=== PATIENT | male | born 1980 | race Caucasian/White ===

== ENCOUNTER 2018-08-27 12:07 | Emergency (ER) | payer OTHER ==
[~2018-08-27] VITALS: Wt 117.4 kg
[~2018-08-27 12:07] MED LIST: AMLO5TAB4 PO; FENO48TA4 PO; HYDR25TA6 PO; METF100010 PO; OMEP20CA16 PO; OMEP40CA6 PO
[2018-08-27] MEDS ORDERED: ONDANSETRON 4 MG INJ IV STA ×3 (13:20→19:45)
[2018-08-27] MEDS ORDERED: PANTOPRAZOLE IV 80 MG in SOD CHLORIDE 0.9% 100 ML IVPB STA (13:20)
[2018-08-27] MEDS ORDERED: HYDROmorphONE 1 MG/ML SYG IV STA ×3 (13:20→19:45)
[2018-08-27] MEDS ORDERED: SOD CHLORIDE 0.9% 1,000 ML IV STA (13:20)
[2018-08-27] MEDS ORDERED: PANTOPRAZOLE IV 80 MG in SOD CHLORIDE 0.9% 100 ML IV STA (13:20)
--- NOTE | 2018-08-27 13:23 | ERD ---
ER Documentation Chief Complaint Chief Complaint vomited blood in AM: 'bright red'; hx gastric ulcers. for endoscopy in november This is a 38-year-old male who began having abdominal pain in April 2018 and has had subsequently episodes of vomiting bright red blood a few times over the past few months. The patient was seen at outside facility and was then referred to a GI doctor who is scheduled a EGD but not until November of this year. The patient states that he woke up this morning and vomited a copious amount of bright red blood and also has noted that over the past 4-5 days he has had melena with maroon colored stool as well. The patient is already taking proton pump inhibitors and avoiding spicy foods. The patient states that he has diffuse abdominal pain chronically and that anything that touches his stomach will make him vomit including blankets or water from the shower. He says touching his abdomen makes him want to throw up. ROS All systems reviewed and are negative except as per history of present illness. Medications Home Meds Active Scripts Omeprazole* (Omeprazole*) 40 Mg Capsule., 40 MG PO DAILY, #30 CAP Prov:JESSICA HOLLIDAY MD 07/23/18 Reported Medications Metoclopramide Hcl* (Metoclopramide Hcl*) 10 Mg Tablet, 10 MG PO Q6H PRN for NAUSEA AND OR VOMITING, TAB 08/27/18 Ondansetron Hcl* (Ondansetron Hcl*) 8 Mg Tablet, 8 MG PO Q6H PRN for NAUSEA AND OR VOMITING, TAB 08/27/18 Hydrochlorothiazide* (Hydrochlorothiazide*) 25 Mg Tab, 25 MG PO DAILY, #30 TAB 07/23/18 Amlodipine Besylate* (Norvasc*) 5 Mg Tablet, 5 MG PO DAILY, TAB 07/23/18 Metformin Hcl* (Metformin Hcl*) 1,000 Mg Tablet, 1000 MG PO WITH BREAKFAST, #30 TAB 07/23/18 Discontinued Reported Medications Fenofibrate Nanocrystallized* (Fenofibrate*) 48 Mg Tablet, 48 MG PO DAILY, TAB 07/23/18 Omeprazole* (Omeprazole*) 20 Mg Capsule., 20 MG PO DAILY, #30 CAP 07/23/18 Allergies Allergies: Coded Allergies: No Known Allergy (Unverified , 08/27/18) PMhx/Soc History of Surgery: No Anesthesia Reaction: No Hx Neurological Disorder: No Hx Respiratory Disorders: No Hx Cardiac Disorders: Yes (htn) Hx Psychiatric Problems: No Hx Miscellaneous Medical Probl: Yes (DM, diverticulitis) Hx Alcohol Use: No Hx Substance Use: No Hx Tobacco Use: No FmHx Family History: No coronary disease Physical Exam Vitals Vital Signs Date Temp Pulse Resp B/P (MAP) Pulse Ox O2 O2 Flow FiO2 Time Delivery Rate 08/27/18 98.0 112 16 151/96 95 12:14 (114) Physical Exam Const: Well-developed, well-nourished Head: Atraumatic, normocephalic Eyes: Normal Conjunctiva, PERRLA, EOMI, normal sclera, no nystagmus ENT: Normal External Ears, Nose and Mouth, moist mucus membranes. Neck: Full range of motion. No meningismus, no lymphadenopathy. Resp: Clear to auscultation bilaterally, no wheezing, rhonchi, rales Cardio: Regular rate and rhythm, no murmurs, S1 S2 present Abd: Soft, diffuse moderate tenderness, non distended. Normal bowel s ounds, no guarding or rebound, no pulsitile abdominal masses or bruits Skin: No petechiae or rashes, no ecchymosis , no maculopapular rash Back: No midline or flank tenderness Ext: No cyanosis, or edema, FROM x 4, normal inspection, neurovascularly intact x 4 Neur: Awake and alert, STR 5/5 x 4, sensation intact x 4, no focal findings, cerebellum intact Psych: Normal Mood and Affect Result Diagram: 08/27/18 1352 08/27/18 1352 Results 24 hrs Laboratory Tests Test 08/27/18 13:52 08/27/18 15:50 White Blood Count 11.0 10^3/ul Red Blood Count 5.10 10^6/ul Hemoglobin 15.0 g/dl Hematocrit 45.3 % Mean Corpuscular Volume 88.8 fl Mean Corpuscular Hemoglobin 29.4 pg Mean Corpuscular Hemoglobin Concent 33.1 g/dl Red Cell Distribution Width 12.4 % Platelet Count 320 10^3/UL Mean Platelet Volume 10.7 fl Immature Granulocytes % 1.200 % Neutrophils % 69.3 % Lymphocytes % 20.8 % Monocytes % 6.3 % Eosinophils % 1.8 % Basophils % 0.6 % Nucleated Red Blood Cells % 0.0 /100WBC Immature Granulocytes # 0.130 10^3/ul Neutrophils # 7.6 10^3/ul Lymphocytes # 2.3 10^3/ul Monocytes # 0.7 10^3/ul Eosinophils # 0.2 10^3/ul Basophils # 0.1 10^3/ul Nucleated Red Blood Cells # 0.0 10^3/ul Prothrombin Time 12.3 Sec Prothrombin Time Ratio 1.0 INR International Normalized Ratio 0.90 Activated Partial Thromboplast Time 29.1 Sec Sodium Level 136 mmol/L Potassium Level 4.3 mmol/L Chloride Level 100 mmol/L Carbon Dioxide Level 22 mmol/L Anion Gap 14 Blood Urea Nitrogen 14 mg/dl Creatinine 0.66 mg/dl Est Glomerular Filtrat Rate mL/min > 60 mL/min Glucose Level 406 mg/dl Calcium Level 9.7 mg/dl Total Bilirubin 0.3 mg/dl Direct Bilirubin 0.00 mg/dl Indirect Bilirubin 0.3 mg/dl Aspartate Amino Transf (AST/SGOT) 137 IU/L Alanine Aminotransferase (ALT/SGPT) 151 IU/L Alkaline Phosphatase 83 IU/L Total Protein 8.0 g/dl Albumin 4.6 g/dl Globulin 3.40 g/dl Albumin/Globulin Ratio 1.35 Bedside Glucose 312 mg/dL Current Medications Medications Dose Sig/Storm Start Time Status Last (Trade) Ordered Route PRN Stop Time Admin Dose Reason Admin Sodium 1,000 ml @ Q1H STAT 08/27/18 DC 08/27/18 Chloride 1,000 mls/hr IV 13:20 08/27/18 13:40 14:19 Pantoprazole 100 ml @ ONCE STAT 08/27/18 DC 08/27/18 80 mg/Sodium 400 mls/hr IVPB 13:20 08/27/18 14:00 Chloride 13:34 Pantoprazole 100 ml @ ONCE STAT 08/27/18 08/27/18 80 mg/Sodium 10 mls/hr IV 13:20 08/27/18 14:00 Chloride 23:19 Ondansetron 4 mg ONCE STAT 08/27/18 DC 08/27/18 HCl (Zofran IV 13:20 08/27/18 13:40 Inj) 13:22 1 mg ONCE STAT 08/27/18 DC 08/27/18 Hydromorphone IV 13:20 08/27/18 13:40 HCl 13:22 (Dilaudid) Insulin 10 unit ONCE ONCE 08/27/18 DC 08/27/18 Human SC 14:30 08/27/18 15:02 Lispro 14:31 (Humalog) Procedures/MDM Patient: ZULY MALDONADO : 1980 Age: 38 Sex: M MR #: [id number] DOS: 08/27/18 1320 Ordering MD: MONTY BOOGIE DO Location: E/R Room/Bed: PROCEDURE: CT Abdomen and Pelvis without contrast. CLINICAL INDICATION: Upper GI bleed. TECHNIQUE: CT scan of the abdomen and pelvis without contrast was performed on a multidetector high-resolution CT scanner. The patient was scanned without intravenous contrast. Coronal and sagittal reformatted images were obtained from the axial source images. Images were reviewed on a high-resolution PACS workstation. One or more of the following dose reduction techniques were used: Automated exposure control, adjustment of the mA and/or kV according to patient size, use of iterative reconstruction technique. DICOM images are available. The total exam CTDI equals 22.93 mGy and the total exam DLP equals 1434.39 mGy- cm. COMPARISON: None. FINDINGS: CT abdomen: The lung bases are clear. The heart size is normal, without pericardial thickening or effusion. The liver is enlarged measuring 24 cm and demonstrates diffusely increased without focal mass or intrahepatic biliary dilatation. The spleen is normal in size and homogeneous in density. The stomach is grossly unremarkable. The pancreas as visualized is normal. The gallbladder and biliary tree are unremarkable and there is no evidence for biliary dilatation. The adrenal glands are symmetric and normal. The kidneys are symmetrically unremarkable as well. No renal calculus or obstructive uropathy or mass lesion is seen. The aorta is of normal caliber. There is no retroperitoneal lymphadenopathy. The radha hepatis region is clear. The small bowel and mesentery, as visualized, are unremarkable. A few scattered diverticula are present throughout the ascending colon. There is a small fat-containing umbilical hernia. CT pelvis: The small bowel loops situated within the pelvis are unremarkable. The pelvic organs are normal. The pelvic sidewalls and inguinal regions are clear. The sigmoid colon and rectum are unremarkable. The appendix is normal. No mass, lymphadenopathy, or free fluid is seen. No acute inflammation is seen. The surrounding osseous structures are unremarkable. No osteolytic or osteoblastic lesion is detected. IMPRESSION: 1. No abdominal or pelvic acute inflammatory process, mass, or lymphadenopathy. 2. Hepatomegaly and hepatic steatosis. 3. Small fat-containing umbilical hernia. 4. Mild diverticulosis. RPTAT: JJ .Sung Alexander MD, Date Time Electronically viewed and signed by .Sung Alexander MD, MD on 08/27/2018 15:27 .A/ CC: MONTY BOOGIE DO [id number] Patient: ZULY MALDONADO : 1980 Age: 38 Sex: M MR #: [id number] DOS: 08/27/18 1320 Ordering MD: MONTY BOOGIE DO Location: E/R Room/Bed: PROCEDURE: XR Chest. CLINICAL INDICATION: chest pain. UGI bleed TECHNIQUE: Single frontal view of the chest was obtained COMPARISON: None FINDINGS: The heart and mediastinum are within normal limits. The lungs are clear. There is no pleural effusion or pneumothorax. RPTAT: AA IMPRESSION: No acute disease. .Lino Watson MD, MD Date Time Electronically viewed and signed by .Lino Watson MD, MD on 08/27/2018 14:18 .S/ CC: MONTY BOOGIE DO [id number] Patient's hemoglobin is stable no acute pathology on CT scan of abdomen. Will admit him to the hospital however the patient is capitated to [facility] will transfer him there for GI bleed workup he is currently on Protonix drip and bolus Departure Diagnosis: Primary Impression: GI bleed GI bleed type/associated pathology: unspecified gastrointestinal hemorrhage type Qualified Codes: K92.2 - Gastrointestinal hemorrhage, unspecified Condition: Stable MONTY BOOGIE DO Aug 27, 2018 13:23
[2018-08-27] MEDS ORDERED: ONDA8TAB83 PO (13:57)
[2018-08-27] MEDS ORDERED: METO10TA3 PO (13:57)
[2018-08-27] MEDS ORDERED: INSULIN LISPRO 100 UNIT/ML VIAL SC ONE (14:30)
[2018-08-27 22:15] VITALS: BP 141/102; PULSE 84; RESP 20
== END 2018-08-27 22:20 | disposition short-term general hospital (02) ==
LOC: E/R 12:07
DX: K92.2 Gastrointestinal hemorrhage, unspecified (principal); I10 Essential (primary) hypertension; E11.9 Type 2 diabetes mellitus without complications; Z79.84 Long term (current) use of oral hypoglycemic drugs
CPT/HCPCS: 36415; 71045; 74176; 80053; 82962; 85025; 85610; 85730; 86850; 86900; 86901; 96361; 96372; 96374; 96375; 96376; C9113; J1170; J1815; J2405; J7030; Z7502; Z7610